=== PATIENT | female | born 1990 | race Two or more races ===

== ENCOUNTER 2019-10-18 21:22 | Emergency (ER) | payer SELFPAY ==
[~2019-10-18] VITALS: Ht 170.2 cm; Wt 132.4 kg
--- NOTE | 2019-10-18 21:53 | NUR ---
ED Nurse Note: pt presents to ED c/o mild spotting. pt reports that she is 13 weeks with her first child and around 1730 today she felt a "gush" similar to when she mensturates. since then, she has noticed mild spotting. pt denies any N/V/D or abd pain at this time. pt's BP is 119/69
[2019-10-18 21:56] VITALS: BP 119/69
--- NOTE | 2019-10-18 22:07 | Emergency Room Report ---
History of Present Illness General Chief Complaint: Vaginal Source: Patient Present Illness [facility] This is a 29-year-old female who is 1 para 0, approximately 13 weeks . She had previous ultrasound done already. She presents with complaint of vaginal bleeding. She has no pain. She felt a slight gush of blood when she sat down to pee. Now she has some small spotting. Never had this problem before. She saw SEISMOLOGY TEACHER 2 weeks ago had ultrasound done. She had blood work done which showed blood type of O+. Denies any fever chills but denies any trauma. No recent sexual intercourse. Allergies: Coded Allergies: No Known Allergies (Unverified , 10/18/19) Patient History Past Medical History: see triage record, old chart reviewed Pertinent Family History: none Social History: Denies: smoking Now: Yes - 13 wks : 1 Para: 0 Immunizations: other Reviewed Nursing Documentation: PMH: Agreed; PSxH: Agreed Nursing Documentation-PMH Past Medical History: No Stated History Review of Systems Eye: Denies: eye pain, blurred vision ENT: Denies: ear pain, nose congestion, throat swelling Respiratory: Denies: cough, shortness of breath Cardiovascular: Denies: chest pain, palpitations Gastrointestinal: Denies: abdominal pain, diarrhea, nausea, vomiting Musculoskeletal: Denies: back pain, joint pain Skin: Denies: rash Neurological: Denies: headache, numbness Endocrine: Denies: increased thirst, increased urine Hematologic/Lymphatic: Denies: easy bruising All Other Systems: negative except mentioned in HPI Physical Exam Vital Signs Date Time Temp Pulse Resp B/P (MAP) Pulse Ox O2 Delivery O2 Flow Rate FiO2 10/18/19 21:36 98.8 102 18 131/80 (97) 100 Room Air Vitals normal Sp02 EP Interpretation: reviewed, normal General Appearance: well appearing, no apparent distress, alert Head: normocephalic, atraumatic Eyes: bilateral eye PERRL, bilateral eye EOMI ENT: hearing grossly normal, normal pharynx Neck: full range of motion, supple, no meningismus Respiratory: chest non-tender, lungs clear, normal breath sounds Cardiovascular #1: regular rate, rhythm, no murmur Gastrointestinal: normal bowel sounds, non tender, no mass, no organomegaly, no bruit, non-distended Musculoskeletal: back normal, normal range of motion, gait/station normal Psychiatric: mood/affect normal Medical Decision Making Diagnostic Impression: Primary Impression: Threatened Additional Impression: UTI (urinary tract infection) Qualified Codes: N30.00 - Acute cystitis without hematuria ER Course Patient presents with a threatened miscarriage. Bedside ultrasound showed a viable IUP with movement and activity and heart rate normal. She does have a small subchorionic bleed. Last Vital Signs Date Time Temp Pulse Resp B/P (MAP) Pulse Ox O2 Delivery O2 Flow Rate FiO2 10/18/19 21:56 98.8 18 119/69 100 Room Air 10/18/19 21:36 102 Status: improved Disposition: HOME, SELF-CARE Condition: Stable Scripts Nitrofurantoin Monohyd/M-Cryst (Nitrofurantoin Slope-Mcr 100 mg) 100 Mg Capsule 100 MG ORAL Q12H, #14 CAP Prov: Hiam Kolb MD 10/18/19 Additional Instructions: Follow-up with your SEISMOLOGY TEACHER within a week. Return if symptoms worsen. Hima Kolb MD Oct 18, 2019 22:07
[2019-10-18 22:19] LABS: APPEARANCE,URINE SLIGHTLY CLOUDY; BILIRUBIN, URINE NEGATIVE (NEGATIVE); COLOR,URINE PALE YELLOW; GLUCOSE, URINE (UA) NEGATIVE (NEGATIVE); KETONES,URINE NEGATIVE (NEGATIVE); LEUKOCYTE ESTERASE ,URINE 2+ (NEGATIVE); NITRITE,URINE NEGATIVE (NEGATIVE); PH,URINE 8 (4.5-8.0); PROTEIN,URINE 1+ (NEGATIVE); UROBILINOGEN,URINE NORMAL MG/DL (0.0-1.0)
[2019-10-18] MEDS ORDERED: MACROBID100 MG ORAL (22:39)
--- NOTE | 2019-10-18 22:43 | NUR ---
ED Nurse Note: Pt is cleared to be d/c per ERMD, pt discharge and aftercare instruction provided w/ prescription, pt education done via discussion and handout, pt advised to follow up with telesales consultant, pt verbalized understanding, pt advised to return to ed if sx worsen or changed, pt accompanied by significant other and left w/ all belongings vss.
[2019-10-18 22:45] VITALS: BP 116/60
== END 2019-10-18 22:45 | disposition home or self-care (01) ==
LOC: EMR 21:50
DX: O20.0 Threatened abortion (principal); O23.41 Unspecified infection of urinary tract in pregnancy, first trimester; Z3A.13 13 weeks gestation of pregnancy
CPT/HCPCS: 81003; 87086; 99283